=== PATIENT | male | born 1955 | race Caucasian/White ===

== ENCOUNTER → 2024-06-04 09:09 | Outpatient (CLI) | payer MEDICARE, OTHER, SELFPAY ==
--- NOTE | 2024-06-04 09:17 | DI.ECHO.S_ITS ---
[place] [facility] : : [address] : : [place] : : [id number] : : Phone: [phone] Echocardiogram Report + + :Name: JUMANA BUCK Study Date: 06/04/2024 Height: 72 in : :[facility] ReadingLocation: Weight: 230 lb : : Gender: Male BSA: 2.3 m2 : :: 1955 Age: 69 yrs BP: 135/90 mmHg: :Reason For Study: CAD : :Ordering Physician: YASMIN HASKINS Performed By: June Montesinos : :Referring: YASMIN HASKINS : + + Interpretation Summary 1. The left ventricular contractility is normal. Estimate ejection fraction is greater than 60% with no segmental wall motion abnormalities. No LVH. Cannot exclude grade 2 diastolic dysfunction. 2. The right ventricle contractility is normal. 3. All cardiac chambers are of normal size. 4. Mild tricuspid regurgitation with estimated pulmonary systolic artery pressures of 33 mmHg. 5. No obvious intracardiac shunts. 6. No obvious intracardiac masses nor thrombus. 7. No hemodynamically significant pericardial effusion. 8. Low right-sided filling pressures. Conclusion: Normal biventricular systolic function with mild tricuspid regurgitation. Procedure: A two-dimensional transthoracic echocardiogram with color flow and Doppler was performed. The study quality was technically adequate. There is no prior echocardiogram noted for this patient. The patient was in sinus rhythm with heart rates between 63-74 bpm during the exam. Left Ventricle: The left ventricle is normal in size and wall thickness. The ejection fraction is estimated to be 60-65%. Right Ventricle: The right ventricle is normal in size and function. Atria: The left atrial size is normal. Right atrial size is normal. There is no Doppler evidence for an interatrial shunt. Mitral Valve: The mitral valve is normal in structure and function. There is mild mitral annular calcification. There is trace mitral regurgitation. Aortic Valve: The aortic valve is grossly normal. The aortic valve is mildly calcified. There is no aortic valve stenosis. No aortic regurgitation is present. Tricuspid Valve: The tricuspid valve is normal in structure and function. There is mild tricuspid regurgitation. The right ventricular systolic pressure is estimated to be at least 33 mmHg based on an estimated right atrial pressure of 3 mm Hg. Pulmonic Valve: The pulmonic valve is not well visualized. There is no pulmonic valvular regurgitation. Great Vessels: The aortic root is normal size. The dimensions of the ascending aorta are normal. The IVC is of normal diameter and collapses greater than 50% with a sniff. This suggests a low right atrial pressure of 3 mm Hg. Pericardium/ Pleura There is no pericardial effusion. There is no pleural effusion. MMode/2D Measurements & Calculations LVIDd: 4.2 cm LVOT diam: 2.5 cm LVIDs: 2.6 cm Ao root diam: 3.4 cm FS: 36.9 % asc Aorta Diam: 3.6 cm IVSd: 0.92 cm Ao Arch Diam (Prox Trans): 2.9 cm LVPWd: 0.83 cm LV villegas. diameter/BSA (cm/m^2): 1.8 LV sys. diameter/BSA (cm/m^2): 1.2 LA A2 area: 21.4 cm2 RA long axis: 5.7 cm LA A4 area: 21.8 cm2 RA area: 17.4 cm2 LA length (vol): 6.0 cm RA vol: 45.2 ml LA vol: 65.8 ml RA : 20.0 ml/m2 LA vol index: 29.1 ml/m2 IVC diam: 1.7 cm RVD1 (basal): 3.5 cm RVD2 (mid): 3.4 cm TAPSE: 2.1 cm Doppler Measurements & Calculations Ao V2 max: 133.7 cm/sec LVOT Max Samy: 98.4 cm/sec Ao V2 mean: 101.2 cm/sec LV V1 max P.9 mmHg Ao max P.2 mmHg LV V1 VTI: 23.3 cm Ao mean P.5 mmHg BEHZAD(I,D): 3.5 cm2 Ao V2 VTI: 31.6 cm BEHZAD(V,D): 3.5 cm2 sev ratio: 0.74 BEHZAD indexed to BSA (cm^2/m^2): 1.6 MV E max samy: 94.6 cm/sec TR max samy: 272.6 cm/sec MV A max samy: 87.0 cm/sec TR max P.7 mmHg MV E/A: 1.1 PA pr(Accel): 29.3 mmHg Med Peak E' Samy: 7.1 cm/sec E/E' med: 13.3 Lat Peak E' Samy: 7.4 cm/sec E/E' lat: 12.7 E/e' average: 13.0 MV dec time: 0.26 sec SV(LVOT): 112.0 ml Reading Physician:
== END ==
LOC: ECHO 09:16
PROVIDERS: PCP Family Medicine; Referring Provider Internal Medicine; Visit Provider Internal Medicine
DX: I25.10 Atherosclerotic heart disease of native coronary artery without angina pectoris (principal); I08.1 Rheumatic disorders of both mitral and tricuspid valves; I70.0 Atherosclerosis of aorta
CPT/HCPCS: 93306

== ENCOUNTER 2025-05-27 12:15 | Day surgery (SDC) | payer MEDICARE, OTHER, SELFPAY ==
[2025-05-27 13:34] VITALS: BP 158/87; PULSE 73; RESP 16; TEMP 36.2; O2SAT 97
--- NOTE | 2025-05-27 13:37 | P.HP_ITS ---
History of Present Illness
--- NOTE | 2025-05-27 13:37 | PM.HP.IH.1 ---
History of Present Illness History of Present Illness Date Patient Seen: 05/27/25 Chief complaint: Colonoscopy [facility] Medical History (Updated 05/07/25 @ 10:54 by Charlette Posadas, RN) STEMI (ST elevation myocardial infarction) (2020) Prostate CA CAD (coronary artery disease) HLD (hyperlipidemia) HTN (hypertension) Surgical History (Updated 05/07/25 @ 10:54 by Charlette Posadas RN) Hx of knee surgery (1984) History of coronary angioplasty with insertion of stent (11/16/20) H/O cataract extraction (2015) Previous back surgery (1988) Social History Smoking Status: Never smoker alcohol intake: current Meds Home Medications and Allergies Home Medications ?Medication ?Instructions ?Recorded ?Confirmed ?Type abiraterone 500 mg tablet 1,000 mg PO DAILY 05/07/25 05/27/25 History acetaminophen 500 mg tablet 1,500 mg PO BEDTIME PRN pain 05/07/25 05/07/25 History (Tylenol Extra Strength) aspirin 81 mg capsule 81 mg PO DAILY 05/07/25 05/27/25 History atorvastatin 80 mg tablet 80 mg PO DAILY 05/07/25 05/27/25 History clopidogrel 75 mg tablet 75 mg PO DAILY 05/07/25 05/27/25 History latanoprost 0.005 % eye drops 1 drp EYE-BOTH ONCE PM 05/07/25 05/07/25 History lisinopril 20 mg tablet 20 mg PO BID 05/07/25 05/27/25 History metoprolol tartrate 25 mg tablet 25 mg PO BID 05/07/25 05/27/25 History nitroglycerin 0.4 mg sublingual 0.4 mg sublingual Q5M PRN chest 05/07/25 05/07/25 History tablet (Nitrostat) pain pantoprazole 40 mg tablet,delayed 40 mg PO DAILY 05/07/25 05/27/25 History release prednisone 5 mg tablet 5 mg PO DAILY 05/07/25 05/27/25 History tamsulosin 0.4 mg capsule 0.4 mg PO DAILY 05/07/25 05/27/25 History Allergies Allergy/AdvReac Type Severity Reaction Status Date / Time No Known Drug Allergies Allergy Verified 05/27/25 13:13 Exam Vital Signs (past 8 hours): - 05/27/25 13:34 Temperature 97.1 F L Pulse Rate 73 Respiratory Rate 16 Blood Pressure 158/87 H Pulse Oximetry 97 Oxygen Delivery Method Room Air Oxygen Delivery Method Room Air Narrative Exam Narrative: Oropharynx free of lesions Chest clear to auscultation percussion Cardiac exam reveals no S3 or murmur Assessment & Plan Assessment & Plan narrative: History of colon polyps need for follow-up colonoscopy. Risks, benefits, alternatives have been explained. Time-Based Coding :: [TOTAL MINUTES] spent with patient and on the chart (including review of chart, obtaining history, exam, reviewing outside data, placing orders, documenting exam and treatment plan, and counseling patient) on [DATE]. [employer] Document charge(s): No
--- NOTE | 2025-05-27 13:39 | P.OP.COLON_ITS ---
Operative Date/Time/Diagnoses
--- NOTE | 2025-05-27 13:39 | PM.OP.COLON ---
Operative Date/Time/Diagnoses Date of procedure: 05/27/25 Time of procedure: 14:22 Pre-op diagnosis: History of colon polyps Post-op diagnosis: same Procedure & Clinicians Same procedure(s) as scheduled: Yes Surgeon: Jacques De La Garza Anesthesia Type: Other Procedure Notes Procedure in detail: The scope was removed. The patient tolerated procedure well. Blood loss none Complications none Sedation mac Findings 1. Procedure aborted due to very poor prep Patient will need to be resceduled with a double dose prep Estimated Blood Loss: 0 Complications: none
[2025-05-27 14:27] VITALS: BP 140/75; PULSE 71; RESP 20; TEMP 36.4; O2SAT 96
== END 2025-05-27 14:48 | disposition home or self-care (01) ==
PROVIDERS: PCP Registered Nurse; Referring Provider Registered Nurse; Visit Provider Internal Medicine Gastroenterology
PROC: 0DJD8ZZ Inspection of Lower Intestinal Tract, Via Natural or Artificial Opening Endoscopic (ICD-10-PCS; CPT 45378; principal; 2025-05-27 13:30)
DX: Z12.11 Encounter for screening for malignant neoplasm of colon (principal); Z86.0100 Personal history of colon polyps, unspecified; Z53.8 Procedure and treatment not carried out for other reasons
CPT/HCPCS: G0105; J2704